=== PATIENT | female | born 1985 | race Caucasian/White ===

== ENCOUNTER 2016-10-13 12:27 | Emergency (ER) | payer MEDICAID ==
[~2016-10-13] VITALS: Ht 162.6 cm; Wt 72.7 kg
[2016-10-13] MEDS ORDERED: SEASONIQUE1 TAB PO (12:52)
[2016-10-13 13:20] LABS: BASO % 0.6 % (0.0-2.0); EOS # 0.1 (0.0-0.7); EOS % 1.1 % (0-4.0); GRAN # 3.4 (1.4-6.5); GRAN % 61.7 % (42.2-75.2); HEMATOCRIT 38.3 % (37.0-47.0); LYMPH # 1.7 (1.2-3.4); MEAN CELL VOLUME 90 fl (80.0-100.0); MEAN CORPUSCULAR HEMOGLOBIN 30 pg (27.0-31.0); MEAN CORPUSCULAR HGB CONC 34 g/dl (33.0-37.0); MEAN PLATELET VOLUME 11.3 fl (7.4-10.4); MONO # 0.2 (0.1-0.6); MONO % 4.4 % (1.7-9.3); PLATELET COUNT 277 K/mm3 (130-400); RED BLOOD COUNT 4.28 M/mm3 (4.10-5.30); REDCELL DISTRIBUTION WIDTH-CV 12.2 % (11.5-14.5); WHITE BLOOD COUNT 5.4 K/mm3 (4.8-10.8)
[2016-10-13 13:34] LABS: ADJUSTED CALCIUM 9.5 mg/dL (8.4-10.2); ALBUMIN 4.4 gm/dL (3.5-5.0); BILIRUBIN,TOTAL 0.5 mg/dL (0.0-1.0); CALCIUM 9.8 mg/dL (8.4-10.2); CREATININE, serum 0.72 mg/dL (0.52-1.25); POTASSIUM 3.8 mmol/L (3.4-5.0); TOTAL PROTEIN 8.1 gm/dL (6.4-8.2)
[2016-10-13 15:08] VITALS: BP 107/60; PULSE 66; TEMP 97.8
== END 2016-10-13 15:09 | disposition home or self-care (01) ==
LOC: COL.ER 12:27
PROVIDERS: Emergency Medicine
DX: N93.8 Other specified abnormal uterine and vaginal bleeding (principal)
CPT/HCPCS: J7030

== ENCOUNTER → 2017-02-28 | Outpatient (REF) ==
[~2017-02-28] MED LIST: SEASONIQUE1 TAB PO
== END ==
LOC: WSOH 09:18
DX: Z00.00 Encounter for general adult medical examination without abnormal findings (principal)

== ENCOUNTER 2017-11-17 12:58 | Emergency (ER) | payer MEDICAID ==
[~2017-11-17] VITALS: Ht 160 cm; Wt 86.4 kg
[2017-11-17 13:00] VITALS: BP 123/85; TEMP 98.9
[2017-11-17] MEDS ORDERED: PRENATAL 191 TAB PO (13:04)
[2017-11-17 13:28] VITALS: PULSE 86
== END 2017-11-17 14:23 | disposition home or self-care (01) ==
LOC: COL.ER 12:58
DX: R07.89 Other chest pain (principal); Z88.0 Allergy status to penicillin

== ENCOUNTER 2018-03-04 15:12 | Outpatient (CLI) | payer MEDICAID ==
[~2018-03-04] VITALS: Ht 160 cm; Wt 92.7 kg
[~2018-03-04 15:12] MED LIST changes: +PRENATAL 191 TAB PO
[2018-03-04] MEDS ORDERED: CEPHALEXIN250 M1 PO (15:32)
[2018-03-04 16:00] VITALS: BP 135/65; PULSE 77; TEMP 98.6
[2018-03-04 16:15] VITALS: BP 109/62; PULSE 76
== END 2018-03-04 16:45 | disposition home or self-care (01) ==
LOC: LDRO 15:12
DX: O26.853 Spotting complicating pregnancy, third trimester (principal); Z3A.30 30 weeks gestation of pregnancy

== ENCOUNTER 2018-03-09 06:12 | Outpatient (CLI) | payer MEDICAID ==
[~2018-03-09] VITALS: Ht 160 cm; Wt 92.7 kg
[~2018-03-09 06:12] MED LIST changes: +CEPHALEXIN250 M1 PO
[2018-03-09 06:43] VITALS: BP 115/65; PULSE 9; TEMP 97.9
[2018-03-09 06:55] VITALS: BP 107/63; PULSE 81
[2018-03-09] MEDS ORDERED: NORCO 325 MG-51 TAB PO (12:14)
[2018-03-09] MEDS ORDERED: PHENERGAN 25 TA25 MG PO (12:14)
== END 2018-03-09 07:20 | disposition home or self-care (01) ==
LOC: LDRO 06:12
DX: O99.89 Other specified diseases and conditions complicating pregnancy, childbirth and the puerperium (principal); R10.12 Left upper quadrant pain; Z3A.30 30 weeks gestation of pregnancy

== ENCOUNTER 2018-03-09 07:22 | Emergency (ER) | payer MEDICAID ==
[~2018-03-09] VITALS: Ht 162.6 cm; Wt 90.8 kg
[2018-03-09 07:26] VITALS: TEMP 98.3
[2018-03-09 07:55] LABS: BASO % 0.1 % (0.0-2.0); EOS % 0.3 % (0-4.0); GRAN # 8.7 (1.4-6.5); GRAN % 81.1 % (42.2-75.2); HEMATOCRIT 32.1 % (37.0-47.0); HEMOGLOBIN 11.1 g/dl (12.5-16.0); LYMPH # 1.5 (1.2-3.4); LYMPH % 13.7 % (20.0-51.0); MEAN CELL VOLUME 87 fl (80.0-100.0); MEAN CORPUSCULAR HEMOGLOBIN 30 pg (27.0-31.0); MEAN CORPUSCULAR HGB CONC 35 g/dl (33.0-37.0); MEAN PLATELET VOLUME 11.9 fl (7.4-10.4); MONO # 0.5 (0.1-0.6); MONO % 4.2 % (1.7-9.3); PLATELET COUNT 217 K/mm3 (130-400); RED BLOOD COUNT 3.71 M/mm3 (4.10-5.30); REDCELL DISTRIBUTION WIDTH-CV 12.6 % (11.5-14.5)
[2018-03-09 08:06] LABS: COLLECTION METHOD CLEAN CATCH
[2018-03-09 08:07] LABS: ALBUMIN 3.6 gm/dL (3.5-5.0); BILIRUBIN,TOTAL 0.3 mg/dL (0.0-1.0); C-REACTIVE PROTEIN 1.5 mg/dL (0.0-0.9); CALCIUM 9.3 mg/dL (8.4-10.2); CREATININE, serum 0.53 mg/dL (0.52-1.25); POTASSIUM 4.1 mmol/L (3.4-5.0); TOTAL PROTEIN 7.6 gm/dL (6.4-8.2)
[2018-03-09 08:13] LABS: MUCOUS Present /lpf; PH 6 (5-8); URINE APPEARANCE Cloudy; URINE BACTERIA None Seen /hpf; URINE BILIRUBIN Negative (NEGATIVE); URINE BLOOD 1+ (NEGATIVE); URINE COLOR Yellow; URINE GLUCOSE Negative (NEGATIVE); URINE KETONE Negative (NEGATIVE); URINE LEUKOCYTE ESTERASE 3+ (NEGATIVE); URINE NITRATE Negative (NEGATIVE); URINE PROTEIN(semi-quant) 1+ (NEGATIVE); URINE UROBILINOGEN Negative (NEGATIVE)
[2018-03-09 08:57] LABS: COLLECTION METHOD CLEAN CATCH
[2018-03-09 09:38] LABS: MUCOUS Present /lpf; PH 6 (5-8); URINE APPEARANCE Hazy; URINE BACTERIA None Seen /hpf; URINE BILIRUBIN Negative (NEGATIVE); URINE BLOOD Negative (NEGATIVE); URINE COLOR Yellow; URINE GLUCOSE Negative (NEGATIVE); URINE KETONE Negative (NEGATIVE); URINE LEUKOCYTE ESTERASE 1+ (NEGATIVE); URINE NITRATE Negative (NEGATIVE); URINE PROTEIN(semi-quant) Negative (NEGATIVE); URINE RBC 0-2 /hpf; URINE UROBILINOGEN Negative (NEGATIVE)
[2018-03-09 12:02] VITALS: BP 90/45; PULSE 77
[2018-03-09] MEDS ORDERED: NORCO 325 MG-51 TAB PO (12:14)
[2018-03-09] MEDS ORDERED: PHENERGAN 25 TA25 MG PO (12:14)
== END 2018-03-09 13:26 | disposition home or self-care (01) ==
LOC: COL.ER 07:22
PROVIDERS: Emergency Medicine
DX: O99.89 Other specified diseases and conditions complicating pregnancy, childbirth and the puerperium (principal); R10.12 Left upper quadrant pain; Z3A.31 31 weeks gestation of pregnancy; Z87.442 Personal history of urinary calculi
CPT/HCPCS: J2550; J7030

== ENCOUNTER 2018-04-13 11:19 | Outpatient (CLI) | payer MEDICAID ==
[~2018-04-13] VITALS: Ht 162.6 cm; Wt 91.8 kg
[~2018-04-13 11:19] MED LIST changes: +NORCO 325 MG-51 TAB PO; +PHENERGAN 25 TA25 MG PO
[2018-04-13 11:30] VITALS: BP 111/64; PULSE 107; TEMP 98.9
== END 2018-04-13 12:10 | disposition home or self-care (01) ==
LOC: LDRO 11:19
DX: O62.9 Abnormality of forces of labor, unspecified (principal); Z3A.35 35 weeks gestation of pregnancy

== ENCOUNTER → 2018-04-23 | Outpatient (CLI) | payer MEDICAID ==
[~2018-04-23] VITALS: Ht 160 cm; Wt 91.8 kg
[~2018-04-23] MED LIST changes: +BENADRYL25 M2 PO; +CLEOCIN HCL300 MG PO; +MOTRIN 800800 MG/TAB PO; +TYLENOL 500MG500 MG PO
[2018-04-23 18:59] VITALS: TEMP 98.7
[2018-04-23 19:30] VITALS: BP 116/74; PULSE 90
[2018-04-23 20:30] VITALS: BP 103/72; PULSE 85
[2018-04-23 20:45] LABS: COLLECTION METHOD CLEAN CATCH
[2018-04-23 20:52] LABS: MUCOUS Present /lpf; PH 7 (5-8); SQUAMOUS EPITHELIAL 0-2 /hpf; URINE APPEARANCE Hazy; URINE BACTERIA Rare /hpf; URINE BILIRUBIN Negative (NEGATIVE); URINE BLOOD Negative (NEGATIVE); URINE COLOR Yellow; URINE GLUCOSE Negative (NEGATIVE); URINE KETONE Negative (NEGATIVE); URINE LEUKOCYTE ESTERASE Trace (NEGATIVE); URINE NITRATE Negative (NEGATIVE); URINE PROTEIN(semi-quant) Negative (NEGATIVE); URINE RBC 0-2 /hpf; URINE UROBILINOGEN Negative (NEGATIVE); URINE WBC 0-2 /hpf
[2018-04-23 21:00] VITALS: BP 109/59; PULSE 81
[2018-04-23 21:20] VITALS: BP 106/59; PULSE 92
[2018-04-23 22:11] VITALS: BP 107/71; PULSE 100; TEMP 98.3
== END ==
LOC: LDRO 18:39
PROVIDERS: Obstetrics & Gynecology
DX: O62.9 Abnormality of forces of labor, unspecified (principal); Z3A.37 37 weeks gestation of pregnancy
CPT/HCPCS: J0690; J1885; J2270; J2405; J2590; J7120

== ENCOUNTER 2018-04-24 06:32 | Inpatient (IN) | payer MEDICAID ==
[~2018-04-24] VITALS: Ht 162.6 cm; Wt 91.8 kg
[2018-04-24] VITALS (21 sets, daily range): BP systolic 104–132; BP diastolic 49–81; PULSE 70–112; TEMP 97.5–98.4
[~2018-04-24 06:32] MED LIST changes: -BENADRYL25 M2 PO; -MOTRIN 800800 MG/TAB PO
[2018-04-24] MEDS ORDERED: BENADRYL25 M2 PO (06:47)
[2018-04-24 07:20] LABS: BASO % 0.2 % (0.0-2.0); EOS # 0.1 (0.0-0.7); EOS % 0.7 % (0-4.0); GRAN # 8.1 (1.4-6.5); GRAN % 77.5 % (42.2-75.2); HEMOGLOBIN 10.9 g/dl (12.5-16.0); LYMPH # 1.7 (1.2-3.4); LYMPH % 16.4 % (20.0-51.0); MEAN CELL VOLUME 85 fl (80.0-100.0); MEAN CORPUSCULAR HEMOGLOBIN 29 pg (27.0-31.0); MEAN CORPUSCULAR HGB CONC 34 g/dl (33.0-37.0); MEAN PLATELET VOLUME 12.3 fl (7.4-10.4); MONO # 0.5 (0.1-0.6); MONO % 4.9 % (1.7-9.3); PLATELET COUNT 232 K/mm3 (130-400); RED BLOOD COUNT 3.73 M/mm3 (4.10-5.30); REDCELL DISTRIBUTION WIDTH-CV 13.1 % (11.5-14.5)
[2018-04-24 07:21] LABS: HEMATOCRIT 31.7 % (37.0-47.0)
[2018-04-25] VITALS: BP 120/60; PULSE 78; TEMP 98
[2018-04-25 06:15] VITALS: BP 111/64; PULSE 75; TEMP 98.3
[2018-04-25 16:00] VITALS: BP 110/58; PULSE 77; TEMP 98.6
[2018-04-25 20:05] VITALS: BP 99/67; PULSE 81; TEMP 99
[2018-04-26] MEDS ORDERED: NORCO 325 MG-51 TAB PO (08:13)
[2018-04-26] MEDS ORDERED: MOTRIN 800800 MG/TAB PO (08:13)
[2018-04-26 08:45] VITALS: BP 107/59; PULSE 84; TEMP 98.5
== END 2018-04-26 11:31 | disposition home or self-care (01) | DRG 766 ==
LOC: LDRO 06:32 → OB 07:10 → LDR 07:10 → OB 09:00
PROVIDERS: Obstetrics & Gynecology
PROC: 10D00Z1 Extraction of Products of Conception, Low, Open Approach (ICD-10-PCS; principal; 2018-04-24)
DX: O75.82 Onset (spontaneous) of labor after 37 completed weeks of gestation but before 39 completed weeks gestation, with delivery by (planned) cesarean section (principal); Z3A.37 37 weeks gestation of pregnancy; Z37.0 Single live birth; Z22.330 Carrier of Group B streptococcus
CPT/HCPCS: J2175; J2405; J2550; J7120

== ENCOUNTER 2020-12-23 07:45 | Outpatient (CLI) | payer OTHER ==
[~2020-12-23] VITALS: Ht 162.6 cm; Wt 91.6 kg
[~2020-12-23 07:45] MED LIST changes: +BENADRYL25 M2 PO; +MOTRIN 800800 MG/TAB PO; +TYLENOL #4 (1 UDTAB PO; +ZOFRAN 4MG T4 MG/TAB PO
[2020-12-23 08:18] VITALS: BP 107/74; PULSE 70
[2020-12-23 09:18] VITALS: BP 111/65; PULSE 62; PULSE 69
--- NOTE | 2020-12-23 09:27 | NUR ---
Pt rrived post lp.Observed alert,orientated x 3,respirations even and unlabored.Report from Daly Blanca.Call light within reach.
[2020-12-23 09:30] VITALS: BP 96/74; PULSE 67
[2020-12-23 09:38] LABS: CSF APPEARANCE CLEAR; CSF COLOR COLORLESS
[2020-12-23 09:39] LABS: CSF RBC 11 /mm3 (0-0)
[2020-12-23 09:45] VITALS: BP 106/66; PULSE 68
[2020-12-23 09:45] LABS: GLUCOSE,CSF 55 mg/dL (40-70); TOTAL PROTEIN,CSF 49 mg/dL (15-45)
[2020-12-23 09:55] LABS: CSF MONONUCLEAR 100 % (70-100); CSF POLYMORPHONUCLEAR 0 % (0-6)
[2020-12-23 10:00] VITALS: BP 95/62; PULSE 67
[2020-12-23 10:15] VITALS: BP 99/61; PULSE 64
--- NOTE | 2020-12-23 10:50 | NUR ---
Discharge instructions given to pt.Pt verbalizes understanding.Pt escorted out by this nurse.
[2020-12-28 15:06] LABS: CSF OLIG BD INTERPRETATION 0 bands (<2); SE OLIGOCLONAL BANDING 0 bands (())
[2020-12-29 08:43] LABS: ALBUMIN CSF 22.2 mg/dL (<=27.0)
[2020-12-29 09:00] LABS: ALBUMUN SERUM 3910 mg/dL (()); CSF IGG/ALBUMIN 0.15 (<=0.21); CSF SYNTHESIS RATE 1.58 mg/24 h (<=12); CSF,IGG 3.4 mg/dL (<=8.1); CSF-IGG INDEX 0.54 (<=0.85); IGG,SERUM 1090 mg/dL (()); IGG/ALBUMIN SERUM 0.28 (<=0.40)
== END 2020-12-23 11:20 | disposition home or self-care (01) ==
LOC: COL.RAD 07:45
PROVIDERS: Psychiatry & Neurology Neurology
DX: G93.2 Benign intracranial hypertension (principal)